=== PATIENT | female | born 1990 | race Caucasian/White ===

== ENCOUNTER 2024-05-31 20:01 | Emergency (ER) | payer OTHER ==
[~2024-05-31] VITALS: Ht 162.6 cm; Wt 65.5 kg
[2024-05-31 20:07] VITALS: TEMP 98.1
[2024-05-31] MEDS: ACETAMINOPHEN/CODEINE 300-30 MG TABLET PO ONE (23:00)
[2024-05-31] MEDS: DiphenhydrAMINE HCL 25 MG CAPSULE PO ONE (23:00)
[2024-05-31] MEDS ORDERED: ACET-2080 PO (23:06)
[2024-05-31] MEDS ORDERED: DIPH50CA37 PO (23:06)
[2024-05-31 23:18] VITALS: BP 116/80; PULSE 63; RESP 16
== END 2024-05-31 23:20 | disposition home or self-care (01) ==
LOC: EMS 20:01
DX: R51.9 Headache, unspecified (principal); F17.210 Nicotine dependence, cigarettes, uncomplicated; Z86.69 Personal history of other diseases of the nervous system and sense organs; Z95.1 Presence of aortocoronary bypass graft; Z88.1 Allergy status to other antibiotic agents
CPT/HCPCS: 99283